=== PATIENT | female | born 1945 | race Caucasian/White ===

== ENCOUNTER → 2016-10-25 | Outpatient (CLI) | payer MEDICARE, BC ==
[2016-10-25 08:11] LABS: CH 30.6; CHCM 32.9; HGB 14.2 gm/dL (11.4-16.0); MCHC 33.1 g/dL (31.0-37.0); MCV 93.5 fL (80.0-100.0); Mean Platelet Volume 7.2; WBC 5.7 k/uL (3.8-10.6)
[2016-10-25 08:28] LABS: ALT 33 U/L (9-52); AST 27 U/L (14-36); Alkaline Phosphatase 95 U/L (38-126); Anion Gap 11 mmol/L; Calcium 9.2 mg/dL (8.4-10.2); Carbon Dioxide 29 mmol/L (22-30); Chloride 103 mmol/L (98-107); Cholesterol 151 mg/dL (<200); Digoxin 0.5 ng/mL; Glucose 84 mg/dL (74-99); HDL Cholesterol 75 mg/dL (40-60); Non-African American GFR(MDRD) >60 (>60 ml/min/1.73 sqM); Sodium 143 mmol/L (137-145); Total Bilirubin 0.6 mg/dL (0.2-1.3); Total Protein 6.4 g/dL (6.3-8.2); Triglycerides 69 mg/dL (<150)
[2016-10-25 08:42] LABS: Blood Urea Nitrogen 13 mg/dL (7-17)
== END | disposition home or self-care (01) ==
LOC: LABWHC1 07:22
PROVIDERS: ATTEND Internal Medicine
DX: E83.52 Hypercalcemia (principal); R53.83 Other fatigue; E78.2 Mixed hyperlipidemia; E87.8 Other disorders of electrolyte and fluid balance, not elsewhere classified
CPT/HCPCS: 36415; 80053; 80061; 80162; 82306; 85027

== ENCOUNTER → 2016-11-20 | Outpatient (CLI) | payer MEDICARE, BC ==
--- NOTE | 2016-11-20 18:10 | CONS ---
DATE OF CONSULTATION: Referring physician is Dr. Micky Cason This is a 71-year-old female patient who was identified to have elevated pulmonary artery pressures and this was observed on a recent echocardiogram. The patient seemed to have some risk factors for pulmonary hypertension including diastolic heart failure and she suffers from chronic atrial fibrillation. She also has systemic hypertension. ( ) obstructive sleep apnea was a concern as a contributing factor and for that reason the patient was [facility] to be further evaluated. The patient has history of snoring and she reported sleep quality to be poor as the patient wakes up on and off throughout the night and she thinks she does not take adequate number of hours of sleep. She has been losing weight and she has lost around 10 pounds. She goes to bed around midnight, wakes around 6:00 a.m. in the morning. She feels well and awake and alert during the day; however, as the day goes by she becomes more tired and fatigued. She is prefers to sleep on her side rather than her back. Denies waking up gasping for air. No waking up with a choking sensation. No grinding of the teeth. She has dry mouth and occasional nighttime palpitations and the patient has chronic atrial fibrillation. No personal history of obstructive sleep apnea. No family history of obstructive sleep apnea. Her current [place] score is only at 5. PAST MEDICAL HISTORY: 1. Chronic bronchial asthma. 2. Congestive heart failure with diastolic dysfunction. 3. Chronic atrial fibrillation. 4. Hyperlipidemia. 5. Hypertension. Surgical history includes cardioversion for atrial fibrillation. The patient has undergone hysterectomy in 1985, bowel surgery for obstruction in 2006, cardiac ablation in 2010. DRUG ALLERGIES ARE TO PENICILLIN CAUSES RASH, SULFA CAUSES STOMACH UPSET, CIPRO CAUSE STOMACH UPSET, AVELOX A RASH, CEFIZOX A RASH, AND VALTREX A RASH. SOCIAL HISTORY: The patient is a nonsmoker. No history of alcohol, no history of IV drugs. FAMILY HISTORY: Negative for obstructive sleep apnea. No report history of sleep breathing disorder. The outpatient medication list includes: 1. Pravastatin 40 mg p.o. daily. 2. Aspirin 81 mg p.o. daily. 3. Losartan 25 mg p.o. daily. 4. Zyrtec 10 mg daily. 5. Digoxin 0.25 mg daily. 6. Eliquis 5 mg p.o. twice a day. 7. Metoprolol 25 mg p.o. daily. 8. Potassium 10 mEq daily. 9. Lasix 20 mg twice a day. 10. Breo Ellipta 1 inhalation daily. 11. Fluticasone nasal spray. REVIEW OF SYSTEMS: Twelve-point review of systems was done. Most of the positive findings were all mentioned above in the history of present illness. Of significance is also the presence of a progressive exertional dyspnea. She has no recent weight gain and in fact she has lost around 10 pounds. Occasional nocturia. She wakes up with a dry mouth. No headaches. She reports high likelihood of sleeping spontaneously when sitting down during quiet activities. BP is 126/74, pulse 84, respirations 16, temperature 97.7, saturation 96% room air, weight is 128. Height is 58-1/2 inches and BMI is 26. GENERAL APPEARANCE: Calm and comfortable. HEENT: Negative for JVD. No goiter or neck mass. The patient has significant crowding of posterior pharynx and she has a Mallampati class IV. LUNGS: Clear to auscultation. HEART: Sounds are irregular. Positive S1, S2. No S3. No murmurs. ABDOMEN: Soft and nontender. No organomegaly. EXTREMITIES: No edema. No cyanosis or clubbing at this point. IMPRESSION: 1. Pulmonary hypertension likely is secondary pulmonary hypertension. As part of her work-up a sleep study will be conducted to rule out any underlying sleep breathing disorder/obstructive sleep apnea. 2. Chronic atrial fibrillation. 3. Chronic bronchial asthma. 4. 5 mm right apical nodule observed on a previous high-resolution CT scan of the chest. 5. Systemic hypertension. 6. Congestive heart failure with diastolic dysfunction. 7. Hyperlipidemia. PLAN: 1. Will investigate this patient further for any sleep breathing disorder. Will set up this patient to underwent a screening polysomnogram, looking for any significant nocturnal oxygen desaturation and/or obstructive apneas and further treatment. 2. Encourage further weight loss. 3. Sleep in a sidewise body position. 4. Issues related sleep hygiene were discussed with the patient at length. 5. Tight control of cardiovascular risk factors. 6. Will continue to follow and make further recommendations based on the results of the sleep study.
== END | disposition home or self-care (01) ==
LOC: SLEEP 12:57
PROVIDERS: ATTEND Internal Medicine Critical Care Medicine
DX: I27.2 Other secondary pulmonary hypertension (principal); I48.2 Chronic atrial fibrillation; J45.909 Unspecified asthma, uncomplicated; I10 Essential (primary) hypertension; I50.9 Heart failure, unspecified; R91.1 Solitary pulmonary nodule; E78.5 Hyperlipidemia, unspecified; Z79.82 Long term (current) use of aspirin; Z79.01 Long term (current) use of anticoagulants; Z79.899 Other long term (current) drug therapy
CPT/HCPCS: 99211; 99215

== ENCOUNTER → 2017-01-16 | Outpatient (CLI) | payer MEDICARE, BC ==
[~2017-01-16] MED LIST: SODIUM CHLORIDE 0.9% 250 ML in EMPTY BAG 1 BAG IV PRN; SODIUM CHLORIDE 0.9% 500 ML in EMPTY BAG 1 BAG IV PRN; ZOLEDRONIC ACID 5 MG in SODIUM CHLORIDE 0.9% 100 ML IV ONE
[2017-01-16 10:52] VITALS: BP 145/66; PULSE 83; RESP 16; TEMP 97.8
== END | disposition home or self-care (01) ==
LOC: PROCWHC3 10:02
PROVIDERS: ATTEND Internal Medicine
DX: M81.0 Age-related osteoporosis without current pathological fracture (principal)
CPT/HCPCS: 96365; J3489

== ENCOUNTER → 2017-01-29 | Outpatient (CLI) | payer MEDICARE, BC ==
--- NOTE | 2017-01-29 12:17 | PN ---
This 71-year-old female patient was referred to me for evaluation of sleep apnea. She is known to have chronic exacerbation and secondary pulmonary hypertension. She is also known to have CHF with diastolic dysfunction, hyperlipidemia and hypertension. Her sleep study was conducted. The patient's overall sleep efficiency was poor at 52%. There was only mild obstructive sleep apnea and an AHI of 7.4 and this was REM specific. The majority of obstructive hypopneas occurred during REM sleep. The patient did not have any significant nocturnal desaturation. For the most part, the pulse ox remained above 90% throughout the study. No significant limb movements noted. No malignant cardiac arrhythmias. Clinically, the patient is doing well. No significant sleepiness. Her [place] score is at 6. She denies falling asleep during inappropriate times. No falling asleep while driving. No major fatigue or tiredness or sleepiness and she described her sleep quality to be good. At times, she wakes up in the middle of the night and she would read a book for a few minutes and then she would go back to sleep without any major difficulties. BP is 124/69, pulse 60 and regular, respirations 16. [place] score is 6. Weight is 129, sats are 97% on room air. Temperature is 98.0. GENERAL APPEARANCE: Calm, comfortable. HEENT: Negative for JVD. There is no goiter or neck mass. LUNGS: Diminished breath sounds bilaterally; otherwise clear. HEART: Sounds are irregular. Positive S1, S2. No S3. No S4. No murmurs. ABDOMEN: Soft, nontender. No organomegaly. EXTREMITIES: No edema, no cyanosis or clubbing. IMPRESSION: 1. Mild asymptomatic sleep apnea with an apnea-hypopnea index of 7.4. The patient has hypopneas essentially occurring during REM sleep. 2. Diminished sleep efficiency at 52%. 3. Chronic atrial fibrillation. 4. Pulmonary hypertension under investigation. 5. Bronchial asthma. 6. Hypertension. 7. Congestive heart failure with diastolic dysfunction. 8. Hyperlipidemia. PLAN: The patient is on assistant clinical director CPAP therapy and I think the magnitude and the severity of the disease is mild and does not want any further treatment at this point, especially if the patient is not symptomatic. I will recommend sleeping in a sidewise body position, encourage weight loss and implement good sleep hygiene measures. Follow up with Cardiology regarding her pulmonary hypertension and chronic atrial fibrillation. I do not see the need for immediate CPAP therapy on this patient for now.
== END | disposition home or self-care (01) ==
LOC: SLEEP 09:42
PROVIDERS: ATTEND Internal Medicine Critical Care Medicine
DX: G47.30 Sleep apnea, unspecified (principal); I48.91 Unspecified atrial fibrillation; I10 Essential (primary) hypertension; E78.5 Hyperlipidemia, unspecified; J45.909 Unspecified asthma, uncomplicated; I50.30 Unspecified diastolic (congestive) heart failure

== ENCOUNTER → 2017-04-23 | Outpatient (CLI) | payer MEDICARE, BC ==
[2017-04-23 14:34] LABS: CH 30.8; CHCM 33.2; HCT 44.1 % (34.0-46.0); HDW 2.23; HGB 14.5 gm/dL (11.4-16.0); MCH 30.6 pg (25.0-35.0); MCHC 32.7 g/dL (31.0-37.0); MCV 93.4 fL (80.0-100.0); Mean Platelet Volume 7.4; RBC 4.72 m/uL (3.80-5.40); RDW 14.6 % (11.5-15.5); WBC 6.4 k/uL (3.8-10.6)
[2017-04-23 14:44] LABS: Anion Gap 8 mmol/L; Blood Urea Nitrogen 15 mg/dL (7-17); Calcium 9.1 mg/dL (8.4-10.2); Carbon Dioxide 26 mmol/L (22-30); Chloride 104 mmol/L (98-107); Glucose 98 mg/dL (74-99); Non-African American GFR(MDRD) >60 (>60 ml/min/1.73 sqM); Potassium 4.5 mmol/L (3.5-5.1); Sodium 138 mmol/L (137-145)
[2017-04-23 14:51] LABS: INR 1.1 (<1.2); Prothrombin Time 10.9 sec (9.0-12.0)
== END | disposition home or self-care (01) ==
LOC: LABWHC1 13:32
PROVIDERS: ATTEND Internal Medicine
DX: Z01.812 Encounter for preprocedural laboratory examination (principal); I48.91 Unspecified atrial fibrillation
CPT/HCPCS: 36415; 80048; 85027; 85610

== ENCOUNTER → 2017-04-25 | Outpatient (CLI) | payer MEDICARE, BC ==
--- NOTE | 2017-04-25 13:29 | CT ---
EXAMINATION TYPE: CT angio chest DATE OF EXAM: 04/25/2017 COMPARISON: CT chest December 23, 2015. Two-view chest x-ray April 17, 2017. HISTORY: Dyspnea CT DLP: 523 mGycm. Automated Exposure Control for Dose Reduction was Utilized. CONTRAST: CTA scan of the thorax is performed with IV Contrast, patient injected with 100 ml mL of Omnipaque 35 0, pulmonary embolism protocol. MIP Images are created on CT scanner and reviewed. FINDINGS: LUNGS: There is mosaic type pattern throughout both lungs identified. There are some scattered areas of linear scarring and/or atelectasis in the mid to lower lungs present. There is more focal consolid ation or atelectasis abutting the left heart border near junction of lingula and left lower lobe. No pleural effusion or pneumothorax is present bilaterally. Tracheobronchial tree is patent. No suspicio us parenchymal nodule or mass is identified. MEDIASTINUM: There is satisfactory enhancement of the pulmonary artery and its branches, there is no CT evidence for pulmonary embolism. There are no greater than 1 cm hilar or mediastinal lymph nodes . There is tiny pericardial effusion seen. There is cardiomegaly redemonstrated. There is severe righ t atrial and moderate right ventricular dilatation. Cardiac apex is deviated left lateral aspect. RV overall be ratio is greater than 1. Main pulmonary artery measures 3.4 cm in diameter on axial image 54. There are enlarged right and left pulmonary arteries. Adjacent ascending aorta measures 2.5 cm in diameter. Surrounding pericardial recess fluid incidentally noted. Reflux of contrast into IVC and h epatic veins is present. There is mild to moderate calcified plaque of the descending aorta. OTHER: Osseous structures are somewhat demineralized. IMPRESSION: 1. No CT evidence for pulmonary embolism. 2. Cardiomegaly with pulmonary artery hypertension and right heart failure felt present as there is s ignificant right-sided chamber enlargement with deviated cardiac apex. There is mild failure or fluid overload state noted. Cannot exclude Limited consolidation in the left lung base versus focal atelec tasis. Latter is favored.
== END | disposition home or self-care (01) ==
LOC: RADCTMAIN 11:43
PROVIDERS: ATTEND Internal Medicine
DX: I51.7 Cardiomegaly (principal)
CPT/HCPCS: 71275; Q9967

== ENCOUNTER → 2017-05-13 | Outpatient (CLI) | payer MEDICARE, BC ==
[2017-05-13 15:07] LABS: Anion Gap 10 mmol/L; Blood Urea Nitrogen 18 mg/dL (7-17); Carbon Dioxide 27 mmol/L (22-30); Chloride 101 mmol/L (98-107); Glucose 139 mg/dL (74-99); Non-African American GFR(MDRD) >60 (>60 ml/min/1.73 sqM); Potassium 3.8 mmol/L (3.5-5.1); Sodium 138 mmol/L (137-145)
== END | disposition home or self-care (01) ==
LOC: LABWHC1 14:19
PROVIDERS: ATTEND Internal Medicine
DX: I50.9 Heart failure, unspecified (principal)
CPT/HCPCS: 36415; 80048; 83880

== ENCOUNTER → 2017-05-20 | Outpatient (CLI) | payer MEDICARE, BC ==
[2017-05-20 14:57] LABS: Anion Gap 10 mmol/L; Blood Urea Nitrogen 21 mg/dL (7-17); Calcium 9.6 mg/dL (8.4-10.2); Carbon Dioxide 30 mmol/L (22-30); Chloride 99 mmol/L (98-107); Glucose 125 mg/dL (74-99); Non-African American GFR(MDRD) >60 (>60 ml/min/1.73 sqM); Potassium 4.7 mmol/L (3.5-5.1); Sodium 139 mmol/L (137-145)
== END | disposition home or self-care (01) ==
LOC: LABWHC1 14:00
PROVIDERS: ATTEND Nurse Practitioner
DX: I50.9 Heart failure, unspecified (principal)
CPT/HCPCS: 36415; 80048; 83880